=== PATIENT | female | born 1970 | race Caucasian/White ===

== ENCOUNTER → 2016-08-20 | Outpatient (CLI) | payer OTHER ==
[2016-08-20 18:54] LABS: BASO % 0.3 % (0.0-1.0); EOS % 0.4 % (0.0-3.0); LARGE UNSTAINED CELL # 0.1 K/mm3 (0.0-0.4); LARGE UNSTAINED CELL % 1.5 % (0.0-4.0); LYMPH # 1.4 K/mm3 (1.5-4.5); LYMPH % 34.1 % (24.0-44.0); MEAN CORPUSCULAR HGB CONC 34.4 g/dl (32.0-36.5); MEAN CORPUSCULAR VOLUME 93.1 fl (80.0-96.0); MONO # 0.2 K/mm3 (0.0-0.8); NEUTROPHILS # 2.4 K/mm3 (1.8-7.7); NEUTROPHILS % 58.7 % (36.0-66.0); PLATELET COUNT, AUTOMATED 211 k/mm3 (150-450); RED CELL DISTRIBUTION WIDTH 12.4 % (11.5-14.5); WHITE BLOOD COUNT 4.1 K/mm3 (4.0-10.0)
[2016-08-20 19:02] LABS: INR 0.98
[2016-08-20 20:36] LABS: CALCIUM LEVEL 8.8 MG/DL (8.5-10.1); CREATININE FOR GFR 1.41 MG/DL (0.55-1.02); GLOMERULAR FILTRATION RATE 42.6 (>58); POTASSIUM SERUM 3.8 MEQ/L (3.5-5.1)
== END ==
LOC: M WUC 16:33
DX: Z01.812 Encounter for preprocedural laboratory examination (principal)

== ENCOUNTER → 2016-09-18 | Outpatient (CLI) | payer OTHER ==
[2016-09-18 19:21] LABS: MEAN CORPUSCULAR HEMOGLOBIN 29.9 pg (27.0-33.0); MEAN CORPUSCULAR HGB CONC 31.9 g/dl (32.0-36.5); MEAN CORPUSCULAR VOLUME 93.7 fl (80.0-96.0); RED CELL DISTRIBUTION WIDTH 13.1 % (11.5-14.5); WHITE BLOOD COUNT 5.3 K/mm3 (4.0-10.0)
[2016-09-18 20:23] LABS: EOSINOPHILS 3 % (0-5); HYPOCHROMASIA 2+
[2016-09-18 20:24] LABS: MICROCYTOSIS 1+
== END ==
LOC: M WUC 17:21
PROVIDERS: ATTEND Physician Assistant
DX: N76.4 Abscess of vulva (principal)

== ENCOUNTER → 2016-09-20 | Outpatient (REF) | payer OTHER | LOC: M LAB REF 17:01 | PROVIDERS: ATTEND Nurse Practitioner Family | DX: S30.95XA Unspecified superficial injury of vagina and vulva, initial encounter (principal); W18.30XA Fall on same level, unspecified, initial encounter; Y92.009 Unspecified place in unspecified non-institutional (private) residence as the place of occurrence of the external cause ==

== ENCOUNTER → 2017-03-20 | Outpatient (CLI) | payer OTHER ==
[2017-03-20 19:07] LABS: ALBUMIN/GLOBULIN RATIO 1.14 (1.00-1.93); ALKALINE PHOSPHATASE 81 U/L (45-117); ALT/SGPT 24 U/L (12-78); ANION GAP 9 MEQ/L (8-16); AST/SGOT 13 U/L (15-37); BILIRUBIN,TOTAL 0.3 MG/DL (0.2-1.0); BLOOD UREA NITROGEN 16 MG/DL (7-18); CALCIUM LEVEL 8.8 MG/DL (8.5-10.1); CARBON DIOXIDE LEVEL 29 MEQ/L (21-32); CHLORIDE LEVEL 104 MEQ/L (98-107); CHOLESTEROL LEVEL 171 MG/DL (<200); CREATININE FOR GFR 1.35 MG/DL (0.55-1.02); GLOMERULAR FILTRATION RATE 44.7 (>58); GLUCOSE, FASTING 69 MG/DL (70-105); POTASSIUM SERUM 3.8 MEQ/L (3.5-5.1); SODIUM LEVEL 142 MEQ/L (136-145); TOTAL PROTEIN 7.5 GM/DL (6.4-8.2); TRIGLYCERIDES LEVEL 73 MG/DL (<150)
[2017-03-22 14:10] LABS: %CD3+CD4+CD8+ 0.9 % (Not Estab.); %CD3+CD4+CD8- 34.1 % (Not Estab.); %CD3+CD4-CD8+ 35.5 % (Not Estab.); ABS CD3+CD4+CD8+ 15 /uL (Not Estab.); ABS CD3+CD4+CD8- 580 /uL (Not Estab.); ABS CD3+CD4-CD8+ 604 /uL (Not Estab.); ABS CD3+CD4-CD8- 34 /uL (Not Estab.); CD4/CD8 NYSDOH RATIO 0.96 (Not Estab.); Eosinophils 1 % (.); HGB 12.5 g/dL (11.1-15.9); Monocytes 7 % (.); Neutrophils 55 % (.); WBC 4.6 x10E3/uL (3.4-10.8)
[2017-03-25 08:11] LABS: T PALLIDUM ANTIBODIES Positive (Negative)
== END ==
LOC: M WUC 16:36
PROVIDERS: ATTEND Internal Medicine
DX: B20 Human immunodeficiency virus [HIV] disease (principal)